=== PATIENT | male | born 1955 | race African-American/Black ===

== ENCOUNTER 2018-11-02 14:26 | Observation (INO) ==
[2018-11-02] MEDS ORDERED: 0.9 % Sodium Chloride 1,000 ML IVC ONE (14:32)
--- NOTE | 2018-11-02 15:08 | Emergency Department Note ---
Disposition Clinical Impression: CHRISTOPHER (acute kidney injury) Diarrhea Qualifiers: Diarrhea type: unspecified type Qualified Code(s): R19.7 - Diarrhea, unspecified Disposition: Admitted As Inpatient Condition: Fair Referrals: Zac Belcher DO [Primary Care Provider] - Forms: ED Satisfaction Letter, Work/School Release Time of Disposition: 17:43 General Adult HPI - General Chief complaint: ED General Medical Stated complaint: "low bp",nausea,lightheaded Time Seen by Provider: 11/02/18 14:32 Source: patient Limitations: no limitations - History of Present Illness HPI Narrative: Mr. Pastor is a 62-year-old male presenting to the ED after recent onset of hypertension. He reports he was at his physical therapy session this morning and felt tired and "lightheaded". They checked his blood pressure and was noted to be 80/57. He also at that time complained of nausea and "dizziness." At this time in the ED his blood pressure is noted to be 90/69. He reports his symptoms have resolved. He is denying any nausea at this time. Also denies dizziness or any other symptoms he had. Presented the ED. Reports this morning he did not eat or drink anything. He had a sip of water with his medication and then went to his therapy session. He denies any previous history of diabetes. Additionally he reported that he had constipation and started taking laxatives currently reports a few episodes of diarrhea. 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 He denies any loss of consciousness, blurry vision, fever, chills, shortness of breath or chest pain. Pain Scale: 0 - Related Data Home Medications Medication Instructions Recorded Confirmed Aspirin 81 mg PO DAILY 02/27/15 11/02/18 Gabapentin [Neurontin] 600 mg PO BID 02/27/15 11/02/18 Cholecalciferol (Vitamin D3) 2,000 unit PO DAILY 06/13/18 11/02/18 [Vitamin D3] FLUoxetine HCl [Prozac] 20 mg PO DAILY 06/13/18 11/02/18 Flecainide 100 mg PO BID 06/13/18 11/02/18 Loratadine [Claritin] 10 mg PO DAILY PRN 06/13/18 11/02/18 Pantoprazole Sodium [Protonix] 40 mg PO DAILY 07/02/18 11/02/18 Buspirone HCl [Buspar HCl] 10 mg PO BID 11/02/18 11/02/18 Docusate Sodium [Dulcolax Stool 1 - 2 cap PO DAILY PRN 11/02/18 11/02/18 Softener] Mirtazapine 7.5 mg PO HS 11/02/18 11/02/18 Warfarin [Coumadin] 5 mg PO DAILY 11/02/18 11/02/18 Allergies Allergy/AdvReac Type Severity Reaction Status Date / Time Penicillins [PCN] Allergy Hives Verified 06/13/18 08:33 Constitutional: Denies: fever, chills, weakness Eyes: Denies: eye pain, vision change ENT ED: Denies: ear pain, congestion, dysphagia Cardiovascular: Denies: chest pain, palpitations, dyspnea on exertion Respiratory: Denies: cough, dyspnea, wheezes Gastrointestinal: Reports: diarrhea (Reports a few episodes of nonbloody diarrhea that his loose but not watery, taking laxatives), other (Had nausea prior to presentation now resolved). Denies: vomiting, melena, hematochezia Genitourinary: Denies: urgency, dysuria, frequency, hematuria Integumentary: Denies: rash, abrasion, lesions Neurological: Denies: headache, weakness, numbness, paresthesias Psychiatric: Reports: depression Past Medical History - Past Medical History Medical history: Reports: cancer, diabetes, other Surgical history: Reports: pacemaker/AICD, other Psychiatric history: Reports: no psych history - Social History Smoking Status: Current every day smoker Smokeless Tobacco Status: No Alcohol use: Reports: none Drug use: Reports: none Physical Exam - General Limitations: no limitations General appearance: alert, in no apparent distress - Head Head exam: atraumatic, normocephalic - Eye Eye exam: Present: normal appearance, EOMI. Absent: scleral icterus, conjunctival injection - ENT ENT exam: normal exam, normal oropharynx, mucous membranes moist - Neck Neck exam: Present: normal inspection, full ROM, trachea midline - Chest Chest inspection: Present: normal inspection, symmetric chest wall rise - Respiratory Respiratory exam: Present: normal lung sounds bilaterally. Absent: respiratory distress, wheezes - Cardiovascular Cardiovascular exam: Present: regular rate, normal rhythm, +S1, +S2 - Abdominal Exam Abdominal exam: Present: soft, tenderness (Diffuse). Absent: distention, guarding, rigidity - Extremities Exam Extremities exam: Present: normal inspection. Absent: pedal edema - Neurological Exam Neurological exam: Present: alert, oriented X3 Course Vital Signs Temperature 97.4 F L 11/02/18 14:27 Pulse Rate 64 11/02/18 14:27 Respiratory Rate 18 11/02/18 14:27 Blood Pressure 95/57 11/02/18 14:27 O2 Sat by Pulse Oximetry 97 11/02/18 14:27 Temperature 97.4 F L 11/02/18 14:27 Pulse Rate 60 11/02/18 17:20 Respiratory Rate 16 11/02/18 17:17 Blood Pressure 114/70 11/02/18 17:20 O2 Sat by Pulse Oximetry 98 11/02/18 17:17 Oxygen Delivery Oxygen Delivery Room Air Medical Decision Making - MDM Narrative Medical decision making narrative: Mr. Kirk is a 62-year-old male who was at outpatient physical therapy one noted to have dizziness and his blood pressure was reported to be 80/54. At prese ntation he reported his symptoms have resolved but stated has diffuse abdominal pain. Reportedly he is having diarrhea but also stated he is also taking laxative. CBC, BMP, lactic acid were ordered. Lactic acid was noted to be 4.0. CT of the abdomen and pelvis is ordered. Blood cultures are ordered. He is receiving 3 L of IV fluids. Repeat lactic acid after completing 3 L of fluid. GI stool panel ordered. CT of abdomen and pelvis is negative for any acute abnormalities. Currently re ceiving his third liter of IV fluids and repeat lactic acid after completion. Responding to fluids, blood pressure improved. 1710 - Medical Records Medical records reviewed: Yes I reviewed the patient's medical records. - Lab Data Lab results reviewed: Yes I reviewed the patient's lab results. Result diagrams: 11/02/18 14:56 11/02/18 14:56 Lab Results 11/02/18 11/02/18 11/02/18 Range/Units 14:56 14:56 14:56 WBC (4.3-11.1) K/mcL RBC (4.19-5.50) M/mcL Hgb (12.9-16.9) g/dL Hct (37.5-50.1) % MCV (83.0-100.0) fL MCH (28.0-33.3) pg MCHC (31.6-35.5) g/dL RDW (11.5-14.5) % Plt Count (140-400) K/mcL MPV (9.4-12.4) fL Immature Gran % (0-4) % Seg Neutrophils % % Lymphocytes % % Monocytes % % Eosinophils % % Basophils % % Neutrophils # (1.6-8.9) K/mcL Lymphocytes # (0.6-4.6) K/mcL Monocytes # (0.0-1.3) K/mcL Eosinophils # (0.0-0.6) K/mcL Basophils # (0.0-0.2) K/mcL PT 21.9 H (9.4-12.1) Seconds INR 1.9 APTT 45.8 H (26.0-36.0) Seconds VBG pH (7.32-7.42) pH Units VBG pCO2 (41-51) mmHg VBG pO2 (25-50) mmHg VBG HCO3 (21-27) mEq/L Sodium (136-145) mEq/L Potassium (3.5-5.1) mEq/L Chloride (98-107) mEq/L Carbon Dioxide (23-29) mEq/L BUN (8-23) mg/dL Creatinine (0.70-1.30) mg/dL Est GFR ( Amer) (> 60) Est GFR (Non-Af Amer) (> 60) BUN/Creatinine Ratio (6-26) Glucose (70-105) mg/dL Calculated Osmolality (280-300) Lactic Acid (0.5-2.2) mmol/L Calcium (8.6-10.3) mg/dL Phosphorus (2.7-4.5) mg/dL Magnesium (1.6-2.6) mg/dL Total Bilirubin (0.3-1.0) mg/dL Direct Bilirubin (0.0-0.2) mg/dL Indirect Bilirubin (0.0-1.2) mg/dL AST (13-39) Units/L ALT (7-52) Units/L Alkaline Phosphatase (34-104) Units/L Creatine Kinase (30-223) Units/L Troponin I (< 0.04) ng/mL B-Natriuretic Peptide 16 (Less than 100) pg/mL Serum Total Protein (6.4-8.9) g/dL Albumin (3.5-5.7) g/dL Globulin (2.4-3.5) g/dL Albumin/Globulin Ratio (1.1-2.2) Lipase 64 (11-82) Units/L Urine Color (Yellow) Urine Clarity (Clear) Urine pH (5.0-8.0) pH Units Ur Specific [place] (1.010-1.025) Urine Protein (Neg-Trace) mg/dL Urine Glucose (UA) (Normal) mg/dL Urine Ketones (Negative) mg/dL Urine Blood (Negative) Urine Nitrite (Negative) Urine Bilirubin (Negative) Urine Urobilinogen (Normal) mg/dL Ur Leukocyte Esterase (Negative) Ur Culture Indicated? (NO) 11/02/18 11/02/18 11/02/18 Range/Units 14:56 14:56 14:56 WBC 3.7 L (4.3-11.1) K/mcL RBC 5.05 (4.19-5.50) M/mcL Hgb 15.7 (12.9-16.9) g/dL Hct 45.0 (37.5-50.1) % MCV 89.1 (83.0-100.0) fL MCH 31.1 (28.0-33.3) pg MCHC 34.9 (31.6-35.5) g/dL RDW 11.9 (11.5-14.5) % Plt Count 192 (140-400) K/mcL MPV 8.8 L (9.4-12.4) fL Immature Gran % 1.1 (0-4) % Seg Neutrophils % 53.8 % Lymphocytes % 28.6 % Monocytes % 10.0 % Eosinophils % 5.4 % Basophils % 1.1 % Neutrophils # 2.0 (1.6-8.9) K/mcL Lymphocytes # 1.1 (0.6-4.6) K/mcL Monocytes # 0.4 (0.0-1.3) K/mcL Eosinophils # 0.2 (0.0-0.6) K/mcL Basophils # 0.0 (0.0-0.2) K/mcL PT (9.4-12.1) Seconds INR APTT (26.0-36.0) Seconds VBG pH (7.32-7.42) pH Units VBG pCO2 (41-51) mmHg VBG pO2 (25-50) mmHg VBG HCO3 (21-27) mEq/L Sodium 136 (136-145) mEq/L Potassium 4.3 (3.5-5.1) mEq/L Chloride 103 (98-107) mEq/L Carbon Dioxide 24 (23-29) mEq/L BUN 22 (8-23) mg/dL Creatinine 1.31 H (0.70-1.30) mg/dL Est GFR ( Amer) > 60 (> 60) Est GFR (Non-Af Amer) 55 L (> 60) BUN/Creatinine Ratio 17 (6-26) Glucose 98 (70-105) mg/dL Calculated Osmolality 285 (280-300) Lactic Acid 4.0 H* (0.5-2.2) mmol/L Calcium 9.7 (8.6-10.3) mg/dL Phosphorus 1.8 L (2.7-4.5) mg/dL Magnesium 1.9 (1.6-2.6) mg/dL Total Bilirubin 0.6 (0.3-1.0) mg/dL Direct Bilirubin 0.1 (0.0-0.2) mg/dL Indirect Bilirubin 0.5 (0.0-1.2) mg/dL AST 22 (13-39) Units/L ALT 18 (7-52) Units/L Alkaline Phosphatase 99 (34-104) Units/L Creatine Kinase 170 (30-223) Units/L Troponin I < 0.03 (< 0.04) ng/mL B-Natriuretic Peptide (Less than 100) pg/mL Serum Total Protein 7.2 (6.4-8.9) g/dL Albumin 4.0 (3.5-5.7) g/dL Globulin 3.2 (2.4-3.5) g/dL Albumin/Globulin Ratio 1.3 (1.1-2.2) Lipase (11-82) Units/L Urine Color (Yellow) Urine Clarity (Clear) Urine pH (5.0-8.0) pH Units Ur Specific [place] (1.010-1.025) Urine Protein (Neg-Trace) mg/dL Urine Glucose (UA) (Normal) mg/dL Urine Ketones (Negative) mg/dL Urine Blood (Negative) Urine Nitrite (Negative) Urine Bilirubin (Negative) Urine Urobilinogen (Normal) mg/dL Ur Leukocyte Esterase (Negative) Ur Culture Indicated? (NO) 11/02/18 11/02/18 Range/Units 16:16 16:57 WBC (4.3-11.1) K/mcL RBC (4.19-5.50) M/mcL Hgb (12.9-16.9) g/dL Hct (37.5-50.1) % MCV (83.0-100.0) fL MCH (28.0-33.3) pg MCHC (31.6-35.5) g/dL RDW (11.5-14.5) % Plt Count (140-400) K/mcL MPV (9.4-12.4) fL Immature Gran % (0-4) % Seg Neutrophils % % Lymphocytes % % Monocytes % % Eosinophils % % Basophils % % Neutrophils # (1.6-8.9) K/mcL Lymphocytes # (0.6-4.6) K/mcL Monocytes # (0.0-1.3) K/mcL Eosinophils # (0.0-0.6) K/mcL Basophils # (0.0-0.2) K/mcL PT (9.4-12.1) Seconds INR APTT (26.0-36.0) Seconds VBG pH 7.30 L (7.32-7.42) pH Units VBG pCO2 53 H (41-51) mmHg VBG pO2 44 (25-50) mmHg VBG HCO3 26 (21-27) mEq/L Sodium (136-145) mEq/L Potassium (3.5-5.1) mEq/L Chloride (98-107) mEq/L Carbon Dioxide (23-29) mEq/L BUN (8-23) mg/dL Creatinine (0.70-1.30) mg/dL Est GFR ( Amer) (> 60) Est GFR (Non-Af Amer) (> 60) BUN/Creatinine Ratio (6-26) Glucose (70-105) mg/dL Calculated Osmolality (280-300) Lactic Acid (0.5-2.2) mmol/L Calcium (8.6-10.3) mg/dL Phosphorus (2.7-4.5) mg/dL Magnesium (1.6-2.6) mg/dL Total Bilirubin (0.3-1.0) mg/dL Direct Bilirubin (0.0-0.2) mg/dL Indirect Bilirubin (0.0-1.2) mg/dL AST (13-39) Units/L ALT (7-52) Units/L Alkaline Phosphatase (34-104) Units/L Creatine Kinase (30-223) Units/L Troponin I (< 0.04) ng/mL B-Natriuretic Peptide (Less than 100) pg/mL Serum Total Protein (6.4-8.9) g/dL Albumin (3.5-5.7) g/dL Globulin (2.4-3.5) g/dL Albumin/Globulin Ratio (1.1-2.2) Lipase (11-82) Units/L Urine Color Yellow (Yellow) Urine Clarity Clear (Clear) Urine pH 7.0 (5.0-8.0) pH Units Ur Specific [place] 1.018 (1.010-1.025) Urine Protein Negative (Neg-Trace) mg/dL Urine Glucose (UA) Normal (Normal) mg/dL Urine Ketones Negative (Negative) mg/dL Urine Blood Negative (Negative) Urine Nitrite Negative (Negative) Urine Bilirubin Negative (Negative) Urine Urobilinogen Normal (Normal) mg/dL Ur Leukocyte Esterase Negative (Negative) Ur Culture Indicated? NO (NO) - Radiology Data Radiology results reviewed: Yes I reviewed the patient's radiology results.
[2018-11-02 15:28] LABS: Basophils % 1.1 %; Eosinophils # 0.2 K/mcL (0.0-0.6); Eosinophils % 5.4 %; Hemoglobin 15.7 g/dL (12.9-16.9); Immature Granulocytes % 1.1 % (0-4); Lymphocytes # 1.1 K/mcL (0.6-4.6); Lymphocytes % 28.6 %; Mean Corpuscular HGB Conc 34.9 g/dL (31.6-35.5); Mean Corpuscular Hemoglobin 31.1 pg (28.0-33.3); Mean Corpuscular Volume 89.1 fL (83.0-100.0); Mean Platelet Volume 8.8 fL (9.4-12.4); Monocytes # 0.4 K/mcL (0.0-1.3); Platelet Count 192 K/mcL (140-400); Red Blood Count 5.05 M/mcL (4.19-5.50); Red Cell Distribution Width 11.9 % (11.5-14.5); Segmented Neutrophils % 53.8 %; White Blood Count 3.7 K/mcL (4.3-11.1)
[2018-11-02 15:35] LABS: INR 1.9; Prothrombin Time 21.9 Seconds (9.4-12.1)
[2018-11-02 15:37] LABS: Activated Partial Thrombo Time 45.8 Seconds (26.0-36.0)
[2018-11-02] MEDS ORDERED: Isovue-370 500 ML BOTTLE IVP ONE (15:47)
[2018-11-02 15:49] LABS: Alanine Aminotransferase 18 Units/L (7-52); Albumin/Globulin Ratio 1.3 (1.1-2.2); Alkaline Phosphatase 99 Units/L (34-104); Aspartate Amino Transferase 22 Units/L (13-39); BUN/Creatinine Ratio 17 (6-26); Bilirubin,Direct 0.1 mg/dL (0.0-0.2); Bilirubin,Indirect 0.5 mg/dL (0.0-1.2); Bilirubin,Total 0.6 mg/dL (0.3-1.0); Blood Urea Nitrogen 22 mg/dL (8-23); Calcium 9.7 mg/dL (8.6-10.3); Carbon Dioxide 24 mEq/L (23-29); Chloride 103 mEq/L (98-107); Globulin 3.2 g/dL (2.4-3.5); Glucose 98 mg/dL (70-105); Osmolality,Calculated 285 (280-300); Potassium 4.3 mEq/L (3.5-5.1); Sodium 136 mEq/L (136-145); Total Protein 7.2 g/dL (6.4-8.9); Troponin I < 0.03 ng/mL (< 0.04); eGFR For African Americans > 60 (> 60); eGFR For Non-African Americans 55 (> 60)
[2018-11-02 16:05] LABS: Magnesium 1.9 mg/dL (1.6-2.6); Phosphorous 1.8 mg/dL (2.7-4.5)
[2018-11-02] MEDS: 0.9 % Sodium Chloride 1,000 ML IVC SCH ×2 (16:16→17:20)
[2018-11-02 16:19] LABS: VBG HCO3 26 mEq/L (21-27); VBG PCO2 53 mmHg (41-51); VBG PO2 44 mmHg (25-50)
--- NOTE | 2018-11-02 16:38 | Electrocardiograph Report ---
[place] [id number] Test Date: 2018-11-02 Pat Name: Scooby Kirk Department: [id number] Room: Gender: M System Development Manager: : [id number] Requested By: Rosaline Caceres Order Number: [id number] Reading MD: Magdi Mckinney Measurements Intervals [place] Rate: 60 P: VT: 161 QRS: 49 QRSD: 99 T: 53 QT: 428 QTc: 428 Interpretive Statements Atrial-paced rhythm Electronically Signed On 11-02-2018 16:36:24 EDT by Magdi Mckinney
[2018-11-02 17:14] LABS: Bilirubin,Urine Negative (Negative); Blood,Urine Negative (Negative); Clarity,Urine Clear (Clear); Color,Urine Yellow (Yellow); Glucose,Urine (UA) Normal (Normal); Ketones,Urine Negative (Negative); Leukocyte Esterase,Urine Negative (Negative); Nitrite,Urine Negative (Negative); Protein,Urine Negative (Neg-Trace); Specific Gravity,Urine 1.018 (1.010-1.025); Urobilinogen,Urine Normal (Normal)
[2018-11-02 17:21] LABS: Creatine Kinase 170 Units/L (30-223)
[2018-11-02] MEDS ORDERED: Naloxone 0.4 MG/ML INJ IVP PRN (18:02)
--- NOTE | 2018-11-02 18:02 | Emergency Department Note ---
Disposition Clinical Impression: CHRISTOPHER (acute kidney injury), Lactic acid acidosis Diarrhea Qualifiers: Diarrhea type: unspecified type Qualified Code(s): R19.7 - Diarrhea, unspecified Disposition: Admitted As Inpatient Condition: Fair Referrals: Zac Belcher DO [Primary Care Provider] - Forms: ED Satisfaction Letter, Work/School Release Time of Disposition: 18:01 General Adult HPI - General Chief complaint: ED General Medical Stated complaint: "low bp",nausea,lightheaded Time Seen by Provider: 11/02/18 14:32 Source: patient Limitations: no limitations - History of Present Illness Pain Scale: 0 - Related Data Home Medications Medication Instructions Recorded Confirmed Aspirin 81 mg PO DAILY 02/27/15 11/02/18 Gabapentin [Neurontin] 600 mg PO BID 02/27/15 11/02/18 Cholecalciferol (Vitamin D3) 2,000 unit PO DAILY 06/13/18 11/02/18 [Vitamin D3] FLUoxetine HCl [Prozac] 20 mg PO DAILY 06/13/18 11/02/18 Flecainide 100 mg PO BID 06/13/18 11/02/18 Loratadine [Claritin] 10 mg PO DAILY PRN 06/13/18 11/02/18 Pantoprazole Sodium [Protonix] 40 mg PO DAILY 07/02/18 11/02/18 Buspirone HCl [Buspar HCl] 10 mg PO BID 11/02/18 11/02/18 Docusate Sodium [Dulcolax Stool 1 - 2 cap PO DAILY PRN 11/02/18 11/02/18 Softener] Mirtazapine 7.5 mg PO HS 11/02/18 11/02/18 Warfarin [Coumadin] 5 mg PO DAILY 11/02/18 11/02/18 Allergies Allergy/AdvReac Type Severity Reaction Status Date / Time Penicillins [PCN] Allergy Hives Verified 06/13/18 08:33 Constitutional: Denies: fever, chills, weakness Eyes: Denies: eye pain, vision change ENT ED: Denies: ear pain, congestion, dysphagia Cardiovascular: Denies: chest pain, palpitations, dyspnea on exertion Respiratory: Denies: cough, dyspnea, wheezes Gastrointestinal: Reports: diarrhea (Reports a few episodes of nonbloody diarrhea that his loose but not watery, taking laxatives), other (Had nausea prior to presentation now resolved). Denies: vomiting, melena, hematochezia Genitourinary: Denies: urgency, dysuria, frequency, hematuria Integumentary: Denies: rash, abrasion, lesions Neurological: Denies: headache, weakness, numbness, paresthesias Psychiatric: Reports: depression Past Medical History - Past Medical History Medical history: Reports: cancer, diabetes, other Surgical history: Reports: pacemaker/AICD, other Psychiatric history: Reports: no psych history - Social History Smoking Status: Current every day smoker Smokeless Tobacco Status: No Alcohol use: Reports: none Drug use: Reports: none Physical Exam - General Limitations: no limitations General appearance: alert, in no apparent distress Course Vital Signs Temperature 97.4 F L 11/02/18 14:27 Pulse Rate 64 11/02/18 14:27 Respiratory Rate 18 11/02/18 14:27 Blood Pressure 95/57 11/02/18 14:27 O2 Sat by Pulse Oximetry 97 11/02/18 14:27 Temperature 97.4 F L 11/02/18 14:27 Pulse Rate 60 11/02/18 17:20 Respiratory Rate 16 11/02/18 17:17 Blood Pressure 114/70 11/02/18 17:20 O2 Sat by Pulse Oximetry 98 11/02/18 17:17 Oxygen Delivery Oxygen Delivery Room Air Medical Decision Making - Lab Data Result diagrams: 11/02/18 14:56 11/02/18 14:56 Lab Results 11/02/18 11/02/18 11/02/18 Range/Units 14:56 14:56 14:56 WBC (4.3-11.1) K/mcL RBC (4.19-5.50) M/mcL Hgb (12.9-16.9) g/dL Hct (37.5-50.1) % MCV (83.0-100.0) fL MCH (28.0-33.3) pg MCHC (31.6-35.5) g/dL RDW (11.5-14.5) % Plt Count (140-400) K/mcL MPV (9.4-12.4) fL Immature Gran % (0-4) % Seg Neutrophils % % Lymphocytes % % Monocytes % % Eosinophils % % Basophils % % Neutrophils # (1.6-8.9) K/mcL Lymphocytes # (0.6-4.6) K/mcL Monocytes # (0.0-1.3) K/mcL Eosinophils # (0.0-0.6) K/mcL Basophils # (0.0-0.2) K/mcL PT 21.9 H (9.4-12.1) Seconds INR 1.9 APTT 45.8 H (26.0-36.0) Seconds VBG pH (7.32-7.42) pH Units VBG pCO2 (41-51) mmHg VBG pO2 (25-50) mmHg VBG HCO3 (21-27) mEq/L Sodium (136-145) mEq/L Potassium (3.5-5.1) mEq/L Chloride (98-107) mEq/L Carbon Dioxide (23-29) mEq/L BUN (8-23) mg/dL Creatinine (0.70-1.30) mg/dL Est GFR ( Amer) (> 60) Est GFR (Non-Af Amer) (> 60) BUN/Creatinine Ratio (6-26) Glucose (70-105) mg/dL Calculated Osmolality (280-300) Lactic Acid (0.5-2.2) mmol/L Calcium (8.6-10.3) mg/dL Phosphorus (2.7-4.5) mg/dL Magnesium (1.6-2.6) mg/dL Total Bilirubin (0.3-1.0) mg/dL Direct Bilirubin (0.0-0.2) mg/dL Indirect Bilirubin (0.0-1.2) mg/dL AST (13-39) Units/L ALT (7-52) Units/L Alkaline Phosphatase (34-104) Units/L Creatine Kinase (30-223) Units/L Troponin I (< 0.04) ng/mL B-Natriuretic Peptide 16 (Less than 100) pg/mL Serum Total Protein (6.4-8.9) g/dL Albumin (3.5-5.7) g/dL Globulin (2.4-3.5) g/dL Albumin/Globulin Ratio (1.1-2.2) Lipase 64 (11-82) Units/L Urine Color (Yellow) Urine Clarity (Clear) Urine pH (5.0-8.0) pH Units Ur Specific [place] (1.010-1.025) Urine Protein (Neg-Trace) mg/dL Urine Glucose (UA) (Normal) mg/dL Urine Ketones (Negative) mg/dL Urine Blood (Negative) Urine Nitrite (Negative) Urine Bilirubin (Negative) Urine Urobilinogen (Normal) mg/dL Ur Leukocyte Esterase (Negative) Ur Culture Indicated? (NO) 11/02/18 11/02/18 11/02/18 Range/Units 14:56 14:56 14:56 WBC 3.7 L (4.3-11.1) K/mcL RBC 5.05 (4.19-5.50) M/mcL Hgb 15.7 (12.9-16.9) g/dL Hct 45.0 (37.5-50.1) % MCV 89.1 (83.0-100.0) fL MCH 31.1 (28.0-33.3) pg MCHC 34.9 (31.6-35.5) g/dL RDW 11.9 (11.5-14.5) % Plt Count 192 (140-400) K/mcL MPV 8.8 L (9.4-12.4) fL Immature Gran % 1.1 (0-4) % Seg Neutrophils % 53.8 % Lymphocytes % 28.6 % Monocytes % 10.0 % Eosinophils % 5.4 % Basophils % 1.1 % Neutrophils # 2.0 (1.6-8.9) K/mcL Lymphocytes # 1.1 (0.6-4.6) K/mcL Monocytes # 0.4 (0.0-1.3) K/mcL Eosinophils # 0.2 (0.0-0.6) K/mcL Basophils # 0.0 (0.0-0.2) K/mcL PT (9.4-12.1) Seconds INR APTT (26.0-36.0) Seconds VBG pH (7.32-7.42) pH Units VBG pCO2 (41-51) mmHg VBG pO2 (25-50) mmHg VBG HCO3 (21-27) mEq/L Sodium 136 (136-145) mEq/L Potassium 4.3 (3.5-5.1) mEq/L Chloride 103 (98-107) mEq/L Carbon Dioxide 24 (23-29) mEq/L BUN 22 (8-23) mg/dL Creatinine 1.31 H (0.70-1.30) mg/dL Est GFR ( Amer) > 60 (> 60) Est GFR (Non-Af Amer) 55 L (> 60) BUN/Creatinine Ratio 17 (6-26) Glucose 98 (70-105) mg/dL Calculated Osmolality 285 (280-300) Lactic Acid 4.0 H* (0.5-2.2) mmol/L Calcium 9.7 (8.6-10.3) mg/dL Phosphorus 1.8 L (2.7-4.5) mg/dL Magnesium 1.9 (1.6-2.6) mg/dL Total Bilirubin 0.6 (0.3-1.0) mg/dL Direct Bilirubin 0.1 (0.0-0.2) mg/dL Indirect Bilirubin 0.5 (0.0-1.2) mg/dL AST 22 (13-39) Units/L ALT 18 (7-52) Units/L Alkaline Phosphatase 99 (34-104) Units/L Creatine Kinase 170 (30-223) Units/L Troponin I < 0.03 (< 0.04) ng/mL B-Natriuretic Peptide (Less than 100) pg/mL Serum Total Protein 7.2 (6.4-8.9) g/dL Albumin 4.0 (3.5-5.7) g/dL Globulin 3.2 (2.4-3.5) g/dL Albumin/Globulin Ratio 1.3 (1.1-2.2) Lipase (11-82) Units/L Urine Color (Yellow) Urine Clarity (Clear) Urine pH (5.0-8.0) pH Units Ur Specific [place] (1.010-1.025) Urine Protein (Neg-Trace) mg/dL Urine Glucose (UA) (Normal) mg/dL Urine Ketones (Negative) mg/dL Urine Blood (Negative) Urine Nitrite (Negative) Urine Bilirubin (Negative) Urine Urobilinogen (Normal) mg/dL Ur Leukocyte Esterase (Negative) Ur Culture Indicated? (NO) 11/02/18 11/02/18 Range/Units 16:16 16:57 WBC (4.3-11.1) K/mcL RBC (4.19-5.50) M/mcL Hgb (12.9-16.9) g/dL Hct (37.5-50.1) % MCV (83.0-100.0) fL MCH (28.0-33.3) pg MCHC (31.6-35.5) g/dL RDW (11.5-14.5) % Plt Count (140-400) K/mcL MPV (9.4-12.4) fL Immature Gran % (0-4) % Seg Neutrophils % % Lymphocytes % % Monocytes % % Eosinophils % % Basophils % % Neutrophils # (1.6-8.9) K/mcL Lymphocytes # (0.6-4.6) K/mcL Monocytes # (0.0-1.3) K/mcL Eosinophils # (0.0-0.6) K/mcL Basophils # (0.0-0.2) K/mcL PT (9.4-12.1) Seconds INR APTT (26.0-36.0) Seconds VBG pH 7.30 L (7.32-7.42) pH Units VBG pCO2 53 H (41-51) mmHg VBG pO2 44 (25-50) mmHg VBG HCO3 26 (21-27) mEq/L Sodium (136-145) mEq/L Potassium (3.5-5.1) mEq/L Chloride (98-107) mEq/L Carbon Dioxide (23-29) mEq/L BUN (8-23) mg/dL Creatinine (0.70-1.30) mg/dL Est GFR ( Amer) (> 60) Est GFR (Non-Af Amer) (> 60) BUN/Creatinine Ratio (6-26) Glucose (70-105) mg/dL Calculated Osmolality (280-300) Lactic Acid (0.5-2.2) mmol/L Calcium (8.6-10.3) mg/dL Phosphorus (2.7-4.5) mg/dL Magnesium (1.6-2.6) mg/dL Total Bilirubin (0.3-1.0) mg/dL Direct Bilirubin (0.0-0.2) mg/dL Indirect Bilirubin (0.0-1.2) mg/dL AST (13-39) Units/L ALT (7-52) Units/L Alkaline Phosphatase (34-104) Units/L Creatine Kinase (30-223) Units/L Troponin I (< 0.04) ng/mL B-Natriuretic Peptide (Less than 100) pg/mL Serum Total Protein (6.4-8.9) g/dL Albumin (3.5-5.7) g/dL Globulin (2.4-3.5) g/dL Albumin/Globulin Ratio (1.1-2.2) Lipase (11-82) Units/L Urine Color Yellow (Yellow) Urine Clarity Clear (Clear) Urine pH 7.0 (5.0-8.0) pH Units Ur Specific [place] 1.018 (1.010-1.025) Urine Protein Negative (Neg-Trace) mg/dL Urine Glucose (UA) Normal (Normal) mg/dL Urine Ketones Negative (Negative) mg/dL Urine Blood Negative (Negative) Urine Nitrite Negative (Negative) Urine Bilirubin Negative (Negative) Urine Urobilinogen Normal (Normal) mg/dL Ur Leukocyte Esterase Negative (Negative) Ur Culture Indicated? NO (NO) Attestation Statement - Attestation Attestation: I reviewed the residents documentation and agree with the residents assessment and plan of care. I have personally had face to face time with the patient. (Brief History, Brief Exam, and MDM) I personally supervised and was present for the alvarado/critical portions of the following procedures completed by the resident: EKG 62 year old male presetns to the ED with dehydration and hypotension and has been taking laxative secondary to constipation. It appears that he has a a lactic acidosis of 4.0 and CHRISTOPHER. IVF therapy blood pressure is respsnisve. Admitted to medicine, accepted yb Dr. Shoemaker. C.diff ordered
[2018-11-02] MEDS ORDERED: 0.9 % Sodium Chloride 1,000 ML IVC SCH (18:15)
--- NOTE | 2018-11-02 18:41 | Internal Med History&Physical ---
Date of Encounter: 11/02/18 Time of Encounter: 18:15 Internal Medicine - H&P: HPI Chief complaint: Dizziness Admitted From: Emergency Dept Plans for Post Hospital Care: Home History of present illness: Mr. Kirk is a 62 year old male with hx of recent CVA in 07/04 and a fib with pacer presented to ED with dizziness and hypotension. He was evaluated and subsequently placed in observation Mr Kirk stated that he had a stroke in June of this year and has residual R side weakness. He was at therapy this AM and developed dizziness and weakness. His BP was low and he was brought to ED. He was evaluated and found to have a lactate of 4 and hypotension. He was having some diarrhea as well (takes laxatives and apple juice) and diffuse abdominal pain. No CP or SOB. No headache. No new neuro findings. He was given IV fluids and at this time is feeling somewhat better. Lactate improved and CT abd negative. Says he has never had this before. Had seizures after the stroke but none since and not on meds. at bedside. Past Med Surg Social Fam HX - Past Medical History Source: patient Medical history: atrial fibrillation, cancer (prostate), CVA, diabetes, seizures (after stroke), other Additional medical history: prostate Ca, cervical spondylosis Psychiatric history: no psych history - Past Surgical History Surgical History: pacemaker/AICD, other Additional surgical history: KNEE SX, TURP, COLONOSCOPY - Social History Smoking Status: Former smoker (28 days now. Using nicotine patch) Smokeless Tobacco Status: No Alcohol use: none Drug use: none Current living situation: With Family - Family History Father Living Status: Hx Family Cardiac Disorders: Yes Mother Living Status: Hx Family Cardiac Disorders: Yes (HTN) Internal Medicine - H&P: Meds Aspirin 81 mg PO DAILY 02/27/15 [History] Gabapentin [Neurontin] 600 mg PO BID 02/27/15 [History] Cholecalciferol (Vitamin D3) [Vitamin D3] 2,000 unit PO DAILY 06/13/18 [History] FLUoxetine HCl [Prozac] 20 mg PO DAILY 06/13/18 [History] Flecainide 100 mg PO BID 06/13/18 [History] Loratadine [Claritin] 10 mg PO DAILY PRN 06/13/18 [History] Pantoprazole Sodium [Protonix] 40 mg PO DAILY 07/02/18 [History] Buspirone HCl [Buspar HCl] 10 mg PO BID 11/02/18 [History] Docusate Sodium [Dulcolax Stool Softener] 1 - 2 cap PO DAILY PRN 11/02/18 [History] Mirtazapine 7.5 mg PO HS 11/02/18 [History] Warfarin [Coumadin] 5 mg PO DAILY 11/02/18 [History] Allergy/AdvReac Type Severity Reaction Status Date / Time Penicillins [PCN] Allergy Hives Verified 06/13/18 08:33 All Systems PM: A 10-system review of systems was performed and is negative for pertinent findings except as documented above in the HPI. - Constitutional Constitutional: fatigue, malaise - EENT Eyes: no change in vision, no floaters Ears: no decreased hearing Nose, mouth and throat: no dry mouth, no mouth pain, no sinus pain - Cardiovascular Cardiovascular ROS IM: irregular heart rhythm, lightheadedness, no chest pain, no claudication, no diaphoresis, no dyspnea, no dyspnea on exertion, no edema, no palpitations - Respiratory Respiratory: no cough, no hemoptysis, no dyspnea on exertion, no wheezing, no chest congestion, no excessive phlegm production - Gastrointestinal Gastrointestinal: abdominal pain, constipation, cramping, diarrhea - Genitourinary Genitourinary ROS male: no difficulty urinating Additional comments: prostate cancer - Musculoskeletal Musculoskeletal ROS IM: muscle weakness, neck pain - Integumentary Integumentary IM: no rash - Neurological Neurological ROS: abnormal gait, convulsions, dizziness, weakness - Psychiatric Psychiatric: no memory loss - Endocrine Endocrine IM: no excessive sweating - Allergic/Immunologic Allergic/Immunologic: no itchy eyes - Constitutional Vitals: Temp Pulse Resp BP Pulse Ox 97.4 F L 60 16 114/70 98 11/02/18 14:27 11/02/18 17:20 11/02/18 17:17 11/02/18 17:20 11/02/18 17:17 General appearance: Present: A&O X 3, pleasant, answers questions appropriately Exam: See below - Head Head exam: Present: atraumatic, normocephalic - Eye Eye exam: Present: EOMI, conjuntiva pink - ENT ENT exam: Present: mucous membranes dry, normal exam - Neck Neck exam general surgery: Present: supple. Absent: lymphadenopathy - Respiratory Respiratory exam: Present: CTAB. Absent: rales, rhonchi, wheezes - Cardiovascular Cardiovascular exam: Present: RRR, +S3. Absent: tachycardia - GI/Abdominal GI/Abdominal exam: Present: soft. Absent: mass, tenderness - Extremities Exam Extremities exam: Present: warm. Absent: pedal edema, tenderness - Neurological Exam Neurological exam: Present: alert, oriented X3. Absent: strengths equal and symetr throughout (RUE weaker than L. RLE weaker but better than arm.) - Psychiatric Psychiatric exam: Present: normal affect, normal mood - Skin Skin exam: Present: dry, warm Internal Med - H&P Results - Labs CBC & Chem 7: 11/02/18 14:56 11/02/18 14:56 Labs: Short CBC 11/02/18 Range/Units 14:56 WBC 3.7 L (4.3-11.1) K/mcL Hgb 15.7 (12.9-16.9) g/dL Hct 45.0 (37.5-50.1) % Plt Count 192 (140-400) K/mcL Neutrophils # 2.0 (1.6-8.9) K/mcL BMP 11/02/18 14:56 Sodium 136 Potassium 4.3 Chloride 103 Carbon Dioxide 24 BUN 22 Creatinine 1.31 H Glucose 98 Calcium 9.7 Cardiac Enzymes 11/02/18 Range/Units 14:56 Troponin I < 0.03 (< 0.04) ng/mL Liver Function 11/02/18 Range/Units 14:56 Total Bilirubin 0.6 (0.3-1.0) mg/dL Direct Bilirubin 0.1 (0.0-0.2) mg/dL AST 22 (13-39) Units/L ALT 18 (7-52) Units/L Alkaline Phosphatase 99 (34-104) Units/L Albumin 4.0 (3.5-5.7) g/dL Urine 11/02/18 Range/Units 16:57 Urine Color Yellow (Yellow) Urine Clarity Clear (Clear) Urine pH 7.0 (5.0-8.0) pH Units Ur Specific [place] 1.018 (1.010-1.025) Urine Protein Negative (Neg-Trace) mg/dL Urine Glucose (UA) Normal (Normal) mg/dL - ABG Interpretation ABG results: 11/02/18 16:16 VBG pH 7.30 L VBG pCO2 53 H VBG pO2 44 VBG HCO3 26 - Impressions ITS Impressions Chest X-Ray 11/02/18 14:33 IMPRESSION: 1. No acute cardiopulmonary disease. D/ / Surya Warner MD / Surya Warner MD Interpreting Provider: Surya Warner MD Abdomen/Pelvis CT 11/02/18 15:47 IMPRESSION: No CT evidence of acute intra-abdominal process. Moderate enlargement of prostate gland. D/ / Pete Bell / Pete Bell Interpreting Provider: Pete Bell - Assessment and Plan (1) Orthostatic hypotension Current Visit: Yes Status: Acute Assessment and plan: Pt presented to ED from therapy due to dizziness and hypotension. Has had poor PO intake as well as diarrhea (from laxatives). Initial lactate 4, now improved to normal Received 3liters fluid in ED - will continue overnight at 75ml/hour Increase activity in AM to assess for further dizziness. (2) Afib Current Visit: No Status: Chronic Assessment and plan: Pt has hx a fib - has pacer and takes Flecanide and coumadin Continued home meds - in NSR now. Qualifiers: Atrial fibrillation type: paroxysmal Qualified Code(s): I48.0 - Paroxysmal atrial fibrillation (3) Diarrhea Current Visit: Yes Status: Acute Assessment and plan: Pt has been taking laxatives daily due to constipation. Recently had apple juice and had diarrhea. Currently has no symptoms. Qualifiers: Diarrhea type: functional diarrhea Qualified Code(s): K59.1 - Functional diarrhea (4) Acute renal failure Current Visit: Yes Status: Suspected Assessment and plan: Pt with CHRISTOPHER on labs in the setting of orthostatic hypotension. Recheck labs in AM. Qualifiers: Acute renal failure type: with acute tubular necrosis Qualified Code(s): N17.0 - Acute kidney failure with tubular necrosis (5) Hemiparesis affecting right side as late effect of cerebrovascular accident Current Visit: Yes Status: Chronic Assessment and plan: To resume therapy at discharge (6) Tobacco abuse, in remission Current Visit: Yes Status: Acute Assessment and plan: Pt prior 3ppd smoker. Using nicotine patch and has not smoked in 28d. - Time Spent With Patient Total time spent is greater than 50% in coordination of care (as documented) at patient's floor/unit and/or counseling patient:
[2018-11-02] MEDS ORDERED: Mirtazapine 15 MG TABLET PO SCH (21:00)
[2018-11-02] MEDS: BUSPIRONE HCL 10 MG TABLET PO SCH (22:03)
[2018-11-02] MEDS: Gabapentin 300 MG CAPSULE PO SCH (22:03)
[2018-11-03 06:22] LABS: Hematocrit 39.8 % (37.5-50.1); Mean Corpuscular HGB Conc 33.9 g/dL (31.6-35.5); Mean Corpuscular Hemoglobin 31.3 pg (28.0-33.3); Mean Corpuscular Volume 92.3 fL (83.0-100.0); Mean Platelet Volume 8.9 fL (9.4-12.4); Platelet Count 174 K/mcL (140-400); Red Blood Count 4.31 M/mcL (4.19-5.50); White Blood Count 3.8 K/mcL (4.3-11.1)
[2018-11-03 06:25] LABS: Hemoglobin 13.5 g/dL (12.9-16.9)
[2018-11-03 06:40] LABS: BUN/Creatinine Ratio 17 (6-26); Blood Urea Nitrogen 17 mg/dL (8-23); Calcium 8.6 mg/dL (8.6-10.3); Carbon Dioxide 25 mEq/L (23-29); Chloride 109 mEq/L (98-107); Glucose 106 mg/dL (70-105); Osmolality,Calculated 294 (280-300); Phosphorous 2.5 mg/dL (2.7-4.5); Potassium 4.1 mEq/L (3.5-5.1); Sodium 141 mEq/L (136-145); eGFR For African Americans > 60 (> 60); eGFR For Non-African Americans > 60 (> 60)
[2018-11-03 06:51] LABS: Prothrombin Time 22.7 Seconds (9.4-12.1)
--- NOTE | 2018-11-03 08:49 | Internal Med Progress Note ---
Hospitalist Progress Note - Encounter Date of Encounter: 11/03/18 Time of Encounter: 08:45 - Exam Vitals: Temp Pulse Resp BP Pulse Ox 97.7 F 64 16 99/68 96 11/03/18 07:59 11/03/18 07:59 11/03/18 07:59 11/03/18 07:59 11/03/18 07:59 Exam: General: No acute distress, resting comfortably in bed HEENT: head normocephalic/atraumatic, EOMI, PERRL, sclera anicteric, moist mucus membranes, Neck: Supple, no lymphadenopathy Cardio: RRR, no murmurs, +S1/S2 Pulm: CTAB, no wheezing, rhonchi, rales. Normal respiratory effort. Abdomen: soft, nontender, active bowel sounds, no rebound, rigidity, guarding, distention Extremities: No LE edema, no calf tenderness, no cyanosis, clubbing, splinter hemorrhages Back: normal appearance on inspection, Nontender throughout Neuro: AAOx3, no focal deficit, no speech deficit, mentating well, normal gait, CN II-XII grossly intact, moves extremities spontaneously MSK: Strength 5/5 throughout, no visible deformities Skin: clean, dry, intact, no visible rashes Psych: Appropriate mood and affect. Answers questions appropriately. Cooperative with exam - Time Spent with Patient Total time spent is greater than 50% in coordination of care (as documented) at patient's floor/unit and/or counseling patient: Internal Medicine: Result - Labs CBC & Chem 7: 11/03/18 04:53 11/03/18 04:53 Labs: Short CBC 11/02/18 11/03/18 Range/Units 14:56 04:53 WBC 3.7 L 3.8 L (4.3-11.1) K/mcL Hgb 15.7 13.5 D (12.9-16.9) g/dL Hct 45.0 39.8 (37.5-50.1) % Plt Count 192 174 (140-400) K/mcL Neutrophils # 2.0 (1.6-8.9) K/mcL BMP 11/02/18 11/03/18 14:56 04:53 Sodium 136 141 Potassium 4.3 4.1 Chloride 103 109 H Carbon Dioxide 24 25 BUN 22 17 Creatinine 1.31 H 1.02 Glucose 98 106 H Calcium 9.7 8.6 Cardiac Enzymes 11/02/18 Range/Units 14:56 Troponin I < 0.03 (< 0.04) ng/mL Liver Function 11/02/18 Range/Units 14:56 Total Bilirubin 0.6 (0.3-1.0) mg/dL Direct Bilirubin 0.1 (0.0-0.2) mg/dL AST 22 (13-39) Units/L ALT 18 (7-52) Units/L Alkaline Phosphatase 99 (34-104) Units/L Albumin 4.0 (3.5-5.7) g/dL Urine 11/02/18 Range/Units 16:57 Urine Color Yellow (Yellow) Urine Clarity Clear (Clear) Urine pH 7.0 (5.0-8.0) pH Units Ur Specific [place] 1.018 (1.010-1.025) Urine Protein Negative (Neg-Trace) mg/dL Urine Glucose (UA) Normal (Normal) mg/dL - ABG Interpretation ABG results: PT/INR, D-dimer PT 22.7 Seconds (9.4-12.1) H 11/03/18 04:53 - Impressions Impressions Chest X-Ray 11/02/18 14:33 IMPRESSION: 1. No acute cardiopulmonary disease. D/ / Surya Warner MD / Surya Warner MD Interpreting Provider: Surya Warner MD Abdomen/Pelvis CT 11/02/18 15:47 IMPRESSION: No CT evidence of acute intra-abdominal process. Moderate enlargement of prostate gland. D/ / Pete Bell / Pete Bell Interpreting Provider: Pete Bell Consult Discharge Plan - Plan Referrals: Zac Belcher DO [Primary Care Provider] -
--- NOTE | 2018-11-03 08:52 | Discharge Summary ---
<Geovanny Sweeney - Last Filed: 11/03/18 17:23> Orders not resulted at time of discharge: Pending orders 11/02/18 15:47 GI Panel,Stool [MOLMIC] Stat 11/02/18 15:55 Culture,Blood [BC] Stat 11/02/18 16:09 Fecal Clostridium difficile PCR [C.difficile Toxin PCR (>=2yo)] [MOLMIC] Stat 11/04/18 04:00 PT/INR [Prothrombin Time INR] [COAG] AM 0400 11/05/18 04:00 PT/INR [Prothrombin Time INR] [COAG] AM 0400 11/06/18 04:00 PT/INR [Prothrombin Time INR] [COAG] AM 0400 11/07/18 04:00 PT/INR [Prothrombin Time INR] [COAG] AM 0400 Date of Encounter: 11/03/18 - Discharge Diagnosis (1) Orthostatic hypotension Status: Acute (2) Afib Status: Chronic Qualifiers: Atrial fibrillation type: paroxysmal Qualified Code(s): I48.0 - Paroxysmal atrial fibrillation (3) Diarrhea Status: Acute Qualifiers: Diarrhea type: functional diarrhea Qualified Code(s): K59.1 - Functional diarrhea (4) Acute renal failure Status: Suspected Qualifiers: Acute renal failure type: with acute tubular necrosis Qualified Code(s): N17.0 - Acute kidney failure with tubular necrosis (5) Hemiparesis affecting right side as late effect of cerebrovascular accident Status: Chronic (6) Tobacco abuse, in remission Status: Acute Hospital course: Mr. Kirk is a 62 year old male - Time Spent with Patient Total time spent providing and/or coordinating discharge services: - Discharge Medications Prescriptions: Continued Gabapentin [Neurontin] 600 mg PO BID Aspirin 81 mg PO DAILY Flecainide 100 mg PO BID FLUoxetine HCl [Prozac] 20 mg PO DAILY Loratadine [Claritin] 10 mg PO DAILY PRN PRN Reason: Allergy Symptoms Cholecalciferol (Vitamin D3) [Vitamin D3] 2,000 unit PO DAILY Pantoprazole Sodium [Protonix] 40 mg PO DAILY Buspirone HCl [Buspar HCl] 10 mg PO BID Mirtazapine 7.5 mg PO HS Docusate Sodium [Dulcolax Stool Softener] 1 - 2 cap PO DAILY PRN PRN Reason: Constipation Warfarin [Coumadin] 5 mg PO SUTUTHSA@1800 No Action Warfarin [Coumadin] 2.5 mg PO MOWEFR@1800 Home Medications: Aspirin 81 mg PO DAILY 02/27/15 [History] Gabapentin [Neurontin] 600 mg PO BID 02/27/15 [History] Cholecalciferol (Vitamin D3) [Vitamin D3] 2,000 unit PO DAILY 06/13/18 [History] FLUoxetine HCl [Prozac] 20 mg PO DAILY 06/13/18 [History] Flecainide 100 mg PO BID 06/13/18 [History] Loratadine [Claritin] 10 mg PO DAILY PRN 06/13/18 [History] Pantoprazole Sodium [Protonix] 40 mg PO DAILY 07/02/18 [History] Buspirone HCl [Buspar HCl] 10 mg PO BID 11/02/18 [History] Docusate Sodium [Dulcolax Stool Softener] 1 - 2 cap PO DAILY PRN 11/02/18 [History] Mirtazapine 7.5 mg PO HS 11/02/18 [History] Warfarin [Coumadin] 5 mg PO SUTUTHSA@1800 11/02/18 [History] Warfarin [Coumadin] 2.5 mg PO MOWEFR@1800 11/03/18 [History] Allergies/Adverse Reactions: Allergy/AdvReac Type Severity Reaction Status Date / Time Penicillins [PCN] Allergy Hives Verified 06/13/18 08:33 Pneumococcal Vaccine AdvReac Chills Verified 11/03/18 07:16 Date of admission: 11/02/18 19:47 Primary care physician: Zac Belcher DO - Constitutional Vitals: Temp Pulse Resp BP Pulse Ox 97.7 F 64 16 121/73 96 11/03/18 07:59 11/03/18 07:59 11/03/18 07:59 11/03/18 10:22 11/03/18 07:59 - Patient Status Disposition: Home, Self-Care Condition: Good - Discharge Instructions Follow Up With: Zac Belcher DO [Primary Care Provider] - - Attending Attestation I examined this patient and my medical decision-making was reviewed with the Resident Physician on 11/03/18. I agree with the documented findings, disposition and treatment plan as described except to the extent set forth below. Mr Kirk has been in observation for orthostasis. He has received IV fluids with improvement. Diarrhea has stopped. He is afebrile and feels well. He is ready for discharg home. Exam as above. <Vi Razo - Last Filed: 11/03/18 23:13> - NOTES TO OUTPATIENT PROVIDER Notes to Outpatient Provider: Admitted for dizziness thought to be secondary to orthostatic hypotension in the setting of poor oral intake as well as laxative use. Should discuss further laxative use with PCP. Orders not resulted at time of discharge: Pending orders 11/02/18 15:47 GI Panel,Stool [MOLMIC] Stat 11/02/18 15:55 Culture,Blood [BC] Stat 11/02/18 16:09 Fecal Clostridium difficile PCR [C.difficile Toxin PCR (>=2yo)] [MOLMIC] Stat 11/04/18 04:00 PT/INR [Prothrombin Time INR] [COAG] AM 0400 11/05/18 04:00 PT/INR [Prothrombin Time INR] [COAG] AM 0400 11/06/18 04:00 PT/INR [Prothrombin Time INR] [COAG] AM 0400 11/07/18 04:00 PT/INR [Prothrombin Time INR] [COAG] AM 0400 Date of Encounter: 11/03/18 Time of Encounter: 08:51 - Discharge Diagnosis (1) Orthostatic hypotension Priority: Primary Status: Acute (2) CHRISTOPHER (acute kidney injury) Priority: Secondary Status: Resolved (3) Diarrhea Priority: Secondary Status: Acute Qualifiers: Diarrhea type: functional diarrhea Qualified Code(s): K59.1 - Functional diarrhea (4) Tobacco abuse, in remission Priority: Secondary Status: Acute (5) Hemiparesis affecting right side as late effect of cerebrovascular accident Priority: Secondary Status: Chronic (6) Afib Priority: Secondary Status: Chronic Qualifiers: Atrial fibrillation type: paroxysmal Qualified Code(s): I48.0 - Paroxysmal atrial fibrillation Hospital course: Mr. Kirk is a 62 year old male with h/o Afib, CVA Jun 2018, pacemaker/AICD, DM, and seizures who presented to the emergency department for dizziness and hypotension while at therapy. He had also complained of diarrhea (uses laxatives) and diffuse abdominal pain. On arrival to ED, he was afebrile with HR 64, RR 18, 95/57, SpO2 97%. Initial labwork significant for creatinine 1.31, phos 1.8, negative troponin, lactic acid 4. CXR negative for acute c ardiopulmonary disease and CT abd/pelvis showed no evidence of acute intra- abdominal process, with moderate enlargement of prostate gland. After 3 liters IV fluids, lactic acid corrected to 1.4. He additionally had an CHRISTOPHER with Cr of 1.31 which resolved with fluids. His symptoms have now resolved and it is suspected that the etiology was orthostatic hypotension secondary to dehydration and decreased oral intake with laxative use. His vitals and labs are at baseline levels at time of admission. He will be discharged home in stable medical condition. He will discuss further laxative use with his PCP. Discharge discussed with: patient - Time Spent with Patient Total time spent providing and/or coordinating discharge services: Date of admission: 11/02/18 19:47 Primary care physician: Zac Belcher DO Discharging clinician: Vi Razo Anticipated date of discharge: 11/03/18 - Constitutional Vitals: Temp Pulse Resp BP Pulse Ox 97.7 F 64 16 99/68 96 11/03/18 07:59 11/03/18 07:59 11/03/18 07:59 11/03/18 07:59 11/03/18 07:59 General appearance: Present: A&O X 3, pleasant, answers questions appropriately Exam: Gen: no acute distress, pleasant HEENT: normocephalic/atraumatic, moist mucous membranes, no scleral icterus Neck: supple, no LAD Cardio: RRR, +S1/S2, no peripheral edema Resp: CTAB, no wheezes/rhonchi/rales, equal chest rise Abd: active bowel sounds, soft, nontender to palpation Neuro: alert and oriented x3, CN II-XII grossly intact, answers questions appropriately Ext: no LE edema - Patient Status Functional capacity at discharge: independent ambulation Overall status at discharge: patient is back to baseline - Diet and Activity Activity: increase activity as tolerated Diet: advance to your usual diet
[2018-11-03] MEDS ORDERED: Nicotine 7 MG PATCH.TD24 TD SCH (09:00)
[2018-11-03] MEDS ORDERED: Aspirin 81 MG TAB.CHEW PO SCH (09:00)
[2018-11-03] MEDS ORDERED: FLUoxetine 20 MG CAPSULE PO SCH (09:00)
[2018-11-03] MEDS: Gabapentin 300 MG CAPSULE PO SCH (09:19)
[2018-11-03] MEDS: BUSPIRONE HCL 10 MG TABLET PO SCH (09:19)
[2018-11-03 10:27] VITALS: BP 121/73
[2018-11-03] MEDS ORDERED: Warfarin perPT PO PRN (18:00)
[2018-11-03] MEDS ORDERED: *HR* Warfarin 2.5 MG TABLET PO ONE (18:00)
--- NOTE | 2018-11-04 13:46 | Electrocardiograph Report ---
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
== END 2018-11-03 18:25 | disposition home or self-care (01) ==
LOC: EMEROOARM 14:26 → 2NENU 19:47 → INTOOBSV 19:47 → SUATTDRO 19:47 → 2NENU 20:38
PROVIDERS: ADMIT Internal Medicine; ATTEND Internal Medicine